=== PATIENT | male | born 1980 | race Caucasian/White ===

== ENCOUNTER 2025-06-14 04:43 | Inpatient (IN) | payer BC, OTHER ==
[2025-06-14] MEDS ORDERED: Bupivacaine/Epinephrine 0.25% 30 ML VIAL ONE (12:20)
[2025-06-14] MEDS ORDERED: CEFAZOLIN 2 GM VIAL ONE (12:27)
[2025-06-14] MEDS ORDERED: Rocuronium Bromide 10 MG/ML (10ML VIAL) ONE (12:31)
[2025-06-14] MEDS ORDERED: Ketorolac Tromethamine 30 MG (1 mL) VIAL ONE (12:31)
[2025-06-14] MEDS ORDERED: PROPOFOL 20 ML ONE (12:31)
[2025-06-14] MEDS ORDERED: SUGAMMADEX SODIUM 200 MG/2 ML VIAL ONE (13:36)
[2025-06-14] MEDS ORDERED: HYDROcodone/Acetaminophen 5/325 mg Tablet ONE (14:53)
== END 2025-06-14 16:00 | DRG 419 ==
LOC: CSHERS 04:43 → EEVIPCON 04:43 → CSHERHOLD 06:01
PROVIDERS: ADMIT Surgery; ATTEND Surgery
PROC: 0FT44ZZ Resection of Gallbladder, Percutaneous Endoscopic Approach (ICD-10-PCS; principal; 2025-06-14)
PROC: 8E0W4CZ Robotic Assisted Procedure of Trunk Region, Percutaneous Endoscopic Approach (ICD-10-PCS; 2025-06-14)
DX: K81.0 Acute cholecystitis (principal); E86.0 Dehydration; Z98.890 Other specified postprocedural states
CPT/HCPCS: 76705; 96361; 96365; C1889; J1100; J1885; J2543; J2704; J3010; Q9967; S2900